=== PATIENT | female | born 1980 | race Asian ===

== ENCOUNTER → 2020-10-01 | Outpatient (CLI) | payer OTHER | END | disposition home or self-care (01) | LOC: RAD 06:28 | PROVIDERS: ATTEND Physician Assistant | DX: R68.84 Jaw pain (principal) | CPT/HCPCS: 70330 ==

== ENCOUNTER → 2020-10-17 | Outpatient (CLI) | payer OTHER | END | disposition home or self-care (01) | LOC: RAD 15:08 | PROVIDERS: ATTEND Physician Assistant | DX: S03.02XA Dislocation of jaw, left side, initial encounter (principal); M26.69 Other specified disorders of temporomandibular joint; X58.XXXA Exposure to other specified factors, initial encounter; Y93.89 Activity, other specified; Y92.89 Other specified places as the place of occurrence of the external cause; Y99.8 Other external cause status | CPT/HCPCS: 70336 ==

== ENCOUNTER 2020-12-22 14:45 | Emergency (ER) | payer OTHER ==
[~2020-12-22] VITALS: Ht 160 cm; Wt 56.5 kg
[2020-12-22 15:11] VITALS: BP 101/59
[2020-12-22] MEDS ORDERED: KETOROLAC 30 MG/1 ML IM ONE (16:00)
[2020-12-22] MEDS ORDERED: KETOROLAC 30 MG/1 ML ONE (16:01)
== END 2020-12-22 17:19 | disposition home or self-care (01) ==
LOC: ED 16:52
DX: S93.492A Sprain of other ligament of left ankle, initial encounter (principal); E07.9 Disorder of thyroid, unspecified; X58.XXXA Exposure to other specified factors, initial encounter; Y93.89 Activity, other specified; Y92.89 Other specified places as the place of occurrence of the external cause; Y99.8 Other external cause status
CPT/HCPCS: 29515; 73610; 73630; 96372; 99284; J1885